=== PATIENT | female | born 1950 | race Caucasian/White ===

== ENCOUNTER 2018-04-22 05:20 | Emergency (ER) | payer OTHER ==
[2018-04-22 06:08] LABS: Absolute Lymphocytes (CBC) 2.5 K/uL (0.7-4.9); Absolute Monocytes 0.7 K/uL (0.1-1.3); Absolute Neutrophil 9.2 K/uL (1.8-8.0); Basophils % 0.3 % (0-1.3); Hematocrit 41.1 % (36.0-45.0); Lymphocytes % 19.9 % (15.3-44.8); MCH 23.3 pg (27.0-35.0); MCV 73.3 fL (80-100); MPV 9.1 fL (7.6-11.3); Monocytes % 5.8 % (3.3-12.3); RBC Red Blood Cell Count 5.61 M/uL (3.86-4.86)
[2018-04-22 06:23] LABS: Albumin 3.8 g/dL (3.4-5.0); Bilirubin Direct 0.1 mg/dL (0-0.2); Bilirubin Total 0.5 mg/dL (0.2-1.0); Potassium 3.1 mmol/L (3.5-5.1); Protein, Total 8.2 g/dL (6.4-8.2)
[2018-04-22] MEDS ORDERED: NA CHLORIDE 0.9% 250 ML ONE (06:41)
[2018-04-22] MEDS ORDERED: NA CHLORIDE 0.9% 1,000 ML ONE ×2 (06:41→06:49)
[2018-04-22] MEDS ORDERED: ONDANSETRON 4 MG/2 ML VIAL ONE ×2 (06:41→10:30)
[2018-04-22] MEDS ORDERED: PANTOPRAZOLE 40 MG INJ ONE (06:41)
[2018-04-22] MEDS ORDERED: PROMETHAZINE 25 MG/ML VIAL ONE (06:49)
[2018-04-22 07:37] LABS: Urine Blood 2+ (NEG); Urine Glucose TRACE (NEG); Urine Protein 2+ (NEG)
[2018-04-22 07:49] LABS: Urine Bacteria 20-50 /HPF (<20); Urine Culture Reflex Order REFLEXED; Urine RBC <5 /HPF (NONE SEEN)
--- NOTE | 2018-04-22 08:32 | EDPHYS ---
Physician Documentation [facility] Name: Denise Duong Age: 68 yrs Sex: Female : 1950 Arrival Date: 04/22/2018 Time: 05:21 Bed 7 Private MD: ED Physician Zacarias Luong HPI: 04/22 05:26 This 68 yrs old Female presents to ER via Unassigned with complaints of abd rn pain, vomiting. 05:26 The patient presents with abdominal pain that is diffuse. Onset: The symptoms/episode rn began/occurred today. The symptoms do not radiate. Associated signs and symptoms: Pertinent positives: nausea and vomiting, Pertinent negatives: fever, hematuria. The symptoms are described as achy, constant, crampy. Modifying factors: The symptoms are alleviated by nothing, the symptoms are aggravated by movement, touching the area. Severity of pain: At its worst the pain was moderate in the emergency department the pain is unchanged. The patient has experienced similar episodes in the past. The patient has not recently seen a physician. Sent for evaluation by correction after single episode of vomiting, possible "coffee grounds" per correction, patient reports abd pain, constant, and threw up one more time while with EMS. + hx of UGIB and bowel obstruction.. Historical: - Allergies: 05:48 Ampicillin; jd3 05:48 Keflex; jd3 - Home Meds: 05:48 magnesium oxide 400 mg Oral tab daily [Active]; simvastatin 10 mg Oral tab 1 tab jd3 nightly [Active]; Vitamin D3 1,000 unit Oral tab 2 tab daily [Active]; tramadol 50 mg Oral tab 1 tab every 6 hours [Active]; Miralax 17 gram Oral pwpk 1 packet twice a day [Active]; senna 8.6 mg Oral cap 2 caps twice a day [Active]; Seroquel 300 mg Oral tab 1 tab nightly [Active]; metoprolol tartrate 25 mg Oral tab 0.5 tab 2 times per day [Active]; calcium carbonate 500 mg calcium (1,250 mg) Oral tab twice a day [Active]; Cymbalta 60 mg Oral cpDR 1 cap once daily [Active]; Xanax 0.25 mg Oral tab 1 tab twice a day [Active]; gabapentin 300 mg Oral cap 1 cap 3 times per day [Active]; trazodone 100 mg Oral tab 1 tab nightly [Active]; Nexium 40 mg oral cpDR 1 cap once daily [Active]; Remeron 15 mg Oral tab 1 tab once daily [Active]; ferrous sulfate 325 mg (65 mg iron) Oral TbEC daily [Active]; acetaminophen 325 mg Oral tab 2 tabs every 6 hours [Active]; bisacodyl 10 mg Rectal supp as needed [Active]; ondansetron HCl 4 mg Oral tab 1 tabs as needed [Active]; - PMHx: 05:48 Anemia; Anxiety; Bipolar disorder; CVA; Cystitis; Dementia; Depression; GI Bleed; jd3 hemiparesis; Hypertension; Schizophrenia; UTI; - PSHx: 05:48 Cholecystectomy; abdominal sx; jd3 - Immunization history:: Adult Immunizations up to date. - Social history:: Smoking status: Patient uses tobacco products. - Family history:: not pertinent. - Ebola Screening: : Patient negative for fever greater than or equal to 101.5 degrees Fahrenheit, and additional compatible Ebola Virus Disease symptoms. - Hospitalizations: : No recent hospitalization is reported. ROS: 05:26 Constitutional: Negative for fever, chills, and weight loss, Eyes: Negative for injury, rn pain, redness, and discharge, Neck: Negative for injury, pain, and swelling, Cardiovascular: Negative for chest pain, palpitations, and edema, Respiratory: Negative for shortness of breath, cough, wheezing, and pleuritic chest pain, Abdomen/GI: + abd pain/nausea/vomiting MS/Extremity: Negative for injury and deformity, Skin: Negative for injury, rash, and discoloration, Neuro: Negative for headache, weakness, numbness, tingling, and seizure. Exam: 05:26 Constitutional: This is a well developed, well nourished patient who is awake, alert, rn holding emesis bag Head/Face: Normocephalic, atraumatic. Eyes: Pupils equal round and reactive to light, extra-ocular motions intact. Lids and lashes normal. Conjunctiva and sclera are non-icteric and not injected. Cornea within normal limits. Periorbital areas with no swelling, redness, or edema. ENT: Nares patent. No nasal discharge, no septal abnormalities noted. Oropharynx with no redness, swelling, or masses, exudates, or evidence of obstruction, uvula midline. Mucous membranes moist. Neck: Trachea midline, no thyromegaly or masses palpated, and no cervical lymphadenopathy. Supple, full range of motion without nuchal rigidity, or vertebral point tenderness. No Meningismus. Cardiovascular: tachycardic, regular, no murmur Respiratory: Lungs have equal breath sounds bilaterally, clear to auscultation and percussion. No rales, rhonchi or wheezes noted. No increased work of breathing, no retractions or nasal flaring. Abdomen/GI: soft, + tender in all 4 quadrants MS/ Extremity: Pulses equal, no cyanosis. Neurovascular intact. Full, normal range of motion. Equal circumference. Neuro: Awake and alert, GCS 15, oriented to person, place, and situation. Cranial nerves II-XII grossly intact. Motor strength 5/5 in all extremities. Sensory grossly intact. Vital Signs: 05:48 BP 153 / 77; Pulse 120; Resp 20 S; Pulse Ox 95% on R/A; Weight 45.81 kg (R); Height 5 jd3 ft. 2 in. (157.48 cm) (R); Pain 9/10; 06:54 BP 164 / 53; Pulse 117; Resp 18 S; Pulse Ox 97% on R/A; bb 08:07 BP 151 / 62; Pulse 102; Resp 18 S; Temp 99.2(O); Pulse Ox 98% on R/A; Pain 7/10; jl7 09:28 BP 154 / 68; Pulse 114; Resp 18; Pulse Ox 92% ; jl7 10:25 BP 170 / 78; Pulse 107; Resp 18 S; Pulse Ox 95% on R/A; jl7 05:48 Body Mass Index 18.47 (45.81 kg, 157.48 cm) jd3 MDM: 05:22 Patient medically screened. rn 08:33 Data reviewed: vital signs, nurses notes, EMS record, lab test result(s), EKG, tony radiologic studies, CT scan, plain films. 04/22 05:24 Order name: Basic Metabolic Panel; Complete Time: 06:26 rn 04/22 05:24 Order name: CBC with Diff; Complete Time: 06:26 rn 04/22 05:24 Order name: Hepatic Function; Complete Time: 06:26 rn 04/22 05:24 Order name: Lipase; Complete Time: 06:26 rn 04/22 05:24 Order name: Urine Microscopic Only; Complete Time: 08:21 rn 04/22 05:46 Order name: Type And Screen; Complete Time: 10:19 rn 04/22 06:54 Order name: Occult Blood--Ancillary 2 04/22 07:35 Order name: Urine Dipstick--Ancillary (enter results); Complete Time: 08:21 mb4 04/22 07:51 Order name: Urine Culture EDIA 04/22 08:33 Order name: Ckmb [facility] 04/22 08:33 Order name: CPK [facility] 04/22 08:33 Order name: Magnesium; Complete Time: 10:19 [facility] 04/22 08:33 Order name: NT PRO-BNP; Complete Time: 10:19 [facility] 04/22 08:33 Order name: PT-INR; Complete Time: 10:19 [facility] 04/22 05:24 Order name: CT Abd/Pelvis - W/Contrast; Complete Time: 10:19 rn 04/22 08:33 Order name: Ptt, Activated; Complete Time: 10:19 [facility] 04/22 08:33 Order name: Troponin (emerg Dept Use Only); Complete Time: 10:19 [facility] 04/22 08:33 Order name: XRAY Chest (1 view) [facility] 04/22 08:33 Order name: CKMB Creatine Kinase MB; Complete Time: 10:19 EDMS 04/22 08:33 Order name: Creatine Phosphokinase; Complete Time: 10:19 EDMS 04/22 05:24 Order name: IV Saline Lock; Complete Time: 07:00 rn 04/22 05:24 Order name: Labs collected and sent; Complete Time: 07:00 04/22 05:24 Order name: Urine Dipstick-Ancillary (obtain specimen); Complete Time: 08:00 rn 04/22 05:46 Order name: Hemacult; Complete Time: 05:46 [facility] 04/22 08:33 Order name: EKG; Complete Time: 08:33 [facility] 04/22 08:33 Order name: Cardiac monitoring; Complete Time: 09:27 [facility] 04/22 08:33 Order name: EKG - Nurse/Tech; Complete Time: 09:27 [facility] 04/22 08:33 Order name: O2 Per Protocol; Complete Time: 09:27 [facility] 04/22 08:33 Order name: O2 Sat Monitoring; Complete Time: 09:27 tony Administered Medications: 05:50 Drug: NS 0.9% 500 ml Route: IV; Rate: bolus; Site: right hand; bb 07:00 Follow up: IV Status: Completed infusion jl7 05:55 Drug: Zofran 4 mg Route: IVP; Site: right hand; bb 06:59 Follow up: Response: No adverse reaction bb 06:00 Drug: ProTONIX 40 mg Route: IVP; Site: right hand; bb 07:00 Follow up: Response: No adverse reaction jl7 06:03 Drug: ProTONIX 8 mg/hr Route: IV; Rate: 25 ml/hr; Site: right hand; bb 08:20 Follow up: IV Pause: 04/22/2018 08:20; IV Pause Reason: Patient to CT [facility] 09:15 Follow up: IV Resume: 04/22/2018 09:15; IV Resume Reason: Patient returned from CT jl7 11:43 Follow up: Response: No adverse reaction; IV Status: Infusion continued upon transfer [facility] 06:49 Drug: Phenergan 12.5 mg Route: IVP; Site: right hand; bb 07:00 Follow up: Response: No adverse reaction; Nausea is decreased 7 07:15 Drug: NS 0.9% 500 ml Route: IV; Rate: bolus; Site: left jugular; jl7 08:23 Follow up: Response: No adverse reaction; IV Status: Completed infusion 7 08:23 Not Given (Duplicate Order): NS 0.9% 1000 ml IV at 125 ml/hr continuous [facility] 09:15 Drug: NS 0.9% with KCl 20 mEq/L 1000 ml Route: IV; Rate: 125 ml/hr; Site: left jugular; jl7 11:43 Follow up: Response: No adverse reaction; IV Status: Infusion continued upon transfer jl7 09:25 Drug: levofloxacin 500 mg Volume: 100 ml; Route: IVPB; Infused Over: 60 mins; Site: [facility] right hand; 10:25 Follow up: Response: No adverse reaction; IV Status: Completed infusion 7 10:30 Drug: Zofran 4 mg Route: IVP; Site: left jugular; jl7 11:00 Follow up: Response: No adverse reaction; Nausea is decreased 7 11:00 Drug: Flagyl 500 mg Volume: 100 ml; Route: IVPB; Rate: 200 ml/hr; Infused Over: 30 jl7 mins; Site: right hand; 11:30 Follow up: Response: No adverse reaction; IV Status: Completed infusion jl7 Point of Care Testing: Guaiac: 05:46 Emesis Guaiac: Positive; Emesis Hemoccult Control: Pass rn Disposition: 04/22/18 08:31 Transfer ordered to [facility]. Diagnosis are Vomiting, Gastrointestinal hemorrhage, unspecified, Hypokalemia, Cystitis, Left sided colitis - proctitis. - Reason for transfer: Higher level of care. - Accepting physician is to [facility]. - Condition is Fair. - Problem is new. - Symptoms have improved. Signatures: Dispatcher [employer] EDMS Zacarias Luong MD MD cha Ballard, Brenda RN RN Maximilian Avitia MD MD rn Leal, Jahala, RN RN jl7 Ivan Gaffney RN RN Alexis Zambrano mw2 Corrections: (The following items were deleted from the chart) 08:32 08:31 04/22/2018 08:31 Transfer ordered to [facility]. Diagnosis is tony Vomiting; Gastrointestinal hemorrhage, unspecified. Reason for transfer: Higher level of care. Accepting physician is to [facility]. Condition is Fair. Problem is new. Symptoms have improved. tony 10:20 08:32 04/22/2018 08:31 Transfer ordered to [facility]. Diagnosis is tony Vomiting; Gastrointestinal hemorrhage, unspecified; Hypokalemia; Cystitis. Reason for transfer: Higher level of care. Accepting physician is to [facility]. Condition is Fair. Problem is new. Symptoms have improved. tony 11:43 10:20 04/22/2018 08:31 Transfer ordered to [facility]. Diagnosis is jl7 Vomiting; Gastrointestinal hemorrhage, unspecified; Hypokalemia; Cystitis; Left sided colitis - proctitis. Reason for transfer: Higher level of care. Accepting physician is to [facility]. Condition is Fair. Problem is new. Symptoms have improved. tony
--- NOTE | 2018-04-22 08:32 | ER ---
Nurse's Notes [facility] Name: Denise Duong Age: 68 yrs Sex: Female : 1950 Arrival Date: 04/22/2018 Time: 05:21 Bed 7 Private MD: Diagnosis: Vomiting;Gastrointestinal hemorrhage, unspecified;Hypokalemia;Cystitis;Left sided colitis-proctitis Presentation: 04/22 05:32 Presenting complaint: EMS states: "pt has been vomiting blood with nausea and diarrhea jd3 as well.". Transition of care: patient was received from another setting of care ([facility]), [facility]. Onset of symptoms was April 22, 2018. Risk Assessment: Do you want to hurt yourself or someone else? Patient reports no desire to harm self or others. Initial Sepsis Screen: Does the patient meet any 2 criteria? HR > 90 bpm. Yes Does the patient have a suspected source of infection? No. Patient's initial sepsis screen is negative. Care prior to arrival: IV initiated. 22 GA, in the right wrist. 05:32 Method Of Arrival: EMS: [facility] jd3 05:32 Acuity: NUBIA 3 jd3 Historical: - Allergies: 05:48 Ampicillin; jd3 05:48 Keflex; jd3 - Home Meds: 05:48 magnesium oxide 400 mg Oral tab daily [Active]; simvastatin 10 mg Oral tab 1 tab jd3 nightly [Active]; Vitamin D3 1,000 unit Oral tab 2 tab daily [Active]; tramadol 50 mg Oral tab 1 tab every 6 hours [Active]; Miralax 17 gram Oral pwpk 1 packet twice a day [Active]; senna 8.6 mg Oral cap 2 caps twice a day [Active]; Seroquel 300 mg Oral tab 1 tab nightly [Active]; metoprolol tartrate 25 mg Oral tab 0.5 tab 2 times per day [Active]; calcium carbonate 500 mg calcium (1,250 mg) Oral tab twice a day [Active]; Cymbalta 60 mg Oral cpDR 1 cap once daily [Active]; Xanax 0.25 mg Oral tab 1 tab twice a day [Active]; gabapentin 300 mg Oral cap 1 cap 3 times per day [Active]; trazodone 100 mg Oral tab 1 tab nightly [Active]; Nexium 40 mg oral cpDR 1 cap once daily [Active]; Remeron 15 mg Oral tab 1 tab once daily [Active]; ferrous sulfate 325 mg (65 mg iron) Oral TbEC daily [Active]; acetaminophen 325 mg Oral tab 2 tabs every 6 hours [Active]; bisacodyl 10 mg Rectal supp as needed [Active]; ondansetron HCl 4 mg Oral tab 1 tabs as needed [Active]; - PMHx: 05:48 Anemia; Anxiety; Bipolar disorder; CVA; Cystitis; Dementia; Depression; GI Bleed; jd3 hemiparesis; Hypertension; Schizophrenia; UTI; - PSHx: 05:48 Cholecystectomy; abdominal sx; jd3 - Immunization history:: Adult Immunizations up to date. - Social history:: Smoking status: Patient uses tobacco products. - Family history:: not pertinent. - Ebola Screening: : Patient negative for fever greater than or equal to 101.5 degrees Fahrenheit, and additional compatible Ebola Virus Disease symptoms. - Hospitalizations: : No recent hospitalization is reported. Screenin:52 Abuse screen: Denies threats or abuse. Nutritional screening: No deficits noted. jd3 Tuberculosis screening: No symptoms or risk factors identified. Fall Risk IV access (20 points). Ambulatory Aid- Crutches/Cane/Walker (15 pts). Gait- Impaired (20 pts.). Mental Status- Oriented to own ability (0 pts). Total Shaikh Fall Scale indicates Low Risk Score (25-44 pts). Fall prevention measures have been instituted. Side Rails Up X 2 Placed close to Nursing Station Frequent Obs/Assesments occuring. Assessment: 05:50 General: Appears uncomfortable, Behavior is cooperative, appropriate for age. Pain: jd3 Complains of pain in abdomen Quality of pain is described as aching, tender, Also complains of nausea. Neuro: Level of Consciousness is awake, alert, obeys commands, Oriented to person, place, time, situation. Cardiovascular: Capillary refill < 3 seconds Patient's skin is warm and dry. Respiratory: Airway is patent Respiratory effort is even, unlabored, Respiratory pattern is regular, symmetrical. GI: Abdomen is round Bowel sounds present X 4 quads. Abd is soft Abdomen is tender to palpation X 4 quads. Reports diarrhea, nausea, vomiting, vomiting blood. : No signs and/or symptoms were reported regarding the genitourinary system. EENT: No signs and/or symptoms were reported regarding the EENT system. Derm: Skin is intact, Skin is dry, Skin is normal, Skin temperature is warm. 06:55 Reassessment: No changes from previously documented assessment. pt awaiting CT scan IV bb site intact, patent with fluids infusing. 07:00 Reassessment: Patient appears in no apparent distress at this time. Neuro: Level of jl7 Consciousness is awake, alert, obeys commands, Oriented to person, place, time, situation. Cardiovascular: Patient's skin is warm and dry. Respiratory: Airway is patent Respiratory effort is even, unlabored, Respiratory pattern is regular, symmetrical. GI: Abdomen is round Bowel sounds present X 4 quads. Abd is soft Abdomen is tender to palpation X 4 quads. Reports diarrhea, Patient currently denies vomiting. : No signs and/or symptoms were reported regarding the genitourinary system. Derm: Skin is intact, Skin is Skin is pink, warm \\T\\ dry. Skin temperature is. 07:10 Reassessment: Pt finished oral contrast, CT notified. jl7 08:00 Reassessment: Patient and/or family updated on plan of care and expected duration. Pain jl7 level reassessed. Patient is alert, oriented x 3, equal unlabored respirations, skin warm/dry/pink. 09:57 Reassessment: Report given to KRYSTLE Harrington for transfer. jl7 10:25 Reassessment: pt actively vomiting, provider notified see [facility] for orders. jl7 Vital Signs: 05:48 BP 153 / 77; Pulse 120; Resp 20 S; Pulse Ox 95% on R/A; Weight 45.81 kg (R); Height 5 jd3 ft. 2 in. (157.48 cm) (R); Pain 9/10; 06:54 BP 164 / 53; Pulse 117; Resp 18 S; Pulse Ox 97% on R/A; bb 08:07 BP 151 / 62; Pulse 102; Resp 18 S; Temp 99.2(O); Pulse Ox 98% on R/A; Pain 7/10; jl7 09:28 BP 154 / 68; Pulse 114; Resp 18; Pulse Ox 92% ; jl7 10:25 BP 170 / 78; Pulse 107; Resp 18 S; Pulse Ox 95% on R/A; jl7 05:48 Body Mass Index 18.47 (45.81 kg, 157.48 cm) jd3 ED Course: 05:21 Patient arrived in ED. ds1 05:22 Maximilian Scruggs MD is Attending Physician. rn 05:32 Ivan Gaffney RN is Primary Nurse. jd3 05:34 Triage completed. jd3 05:34 Maintain EMS IV. Dressing intact. Site clean \\T\\ dry. Gauge \\T\\ site: 22 G to right wrist.. buster 3 05:49 Arm band placed on. jd3 05:51 hemacult tested positive per Dr. Scruggs. mw2 05:52 Radiology exam delayed due to Not able to drink oral contrast at this time. ER staff kw1 will notify CT when patient is able. 05:53 Patient has correct armband on for positive identification. Placed in gown. Bed in low jd3 position. Call light in reach. Side rails up X2. 06:35 Missed attempt(s): 24 gauge in left forearm. Bleeding controlled, band aid applied, ea catheter tip intact. 06:40 Missed attempt(s): 22 gauge in left forearm. Bleeding controlled, band aid applied, ea catheter tip intact. 06:54 Missed attempt(s): 22 gauge in right antecubital area. Bleeding controlled, band aid bb applied, catheter tip intact. 07:15 Inserted saline lock: 20 gauge in left EJ, using aseptic technique. ,using aseptic jl7 technique. inserted by CLARA Mead. 07:16 Radiology exam delayed due to IV insertion attempt and/or patient not having vm2 appropriate IV at this time. Jason will call when pt has another line. 07:27 Attending Physician role handed off by Maximilian Scruggs MD tony 07:27 Zacarias Luong MD is Attending Physician. tony 07:30 Cleaned of incontinence. jl7 07:30 Warm blanket given. jl7 07:35 Straight cath inserted, using sterile technique, 16 Fr. Specimen obtained. Returned jl7 cloudy urine. Patient tolerated well. 08:00 No provider procedures requiring assistance completed. Patient transferred, IV remains jl7 in place. 08:08 Oral care given. jl7 08:[address] via stretcher. vm2 08:28 CT completed. Note: . Patient moved back from CT. cw1 08:28 CT Abd/Pelvis - W/Contrast In Process Unspecified. EDMS 09:01 X-ray completed. Portable x-ray completed in exam room. Patient tolerated procedure ag1 well. 09:12 XRAY Chest (1 view) In Process Unspecified. EDMS 09:25 Inserted saline lock: 24 gauge in right hand, using aseptic technique. jl7 Administered Medications: 05:50 Drug: NS 0.9% 500 ml Route: IV; Rate: bolus; Site: right hand; bb 07:00 Follow up: IV Status: Completed infusion jl7 05:55 Drug: Zofran 4 mg Route: IVP; Site: right hand; bb 06:59 Follow up: Response: No adverse reaction bb 06:00 Drug: ProTONIX 40 mg Route: IVP; Site: right hand; bb 07:00 Follow up: Response: No adverse reaction jl7 06:03 Drug: ProTONIX 8 mg/hr Route: IV; Rate: 25 ml/hr; Site: right hand; bb 08:20 Follow up: IV Pause: 04/22/2018 08:20; IV Pause Reason: Patient to CT jl7 09:15 Follow up: IV Resume: 04/22/2018 09:15; IV Resume Reason: Patient returned from CT jl7 11:43 Follow up: Response: No adverse reaction; IV Status: Infusion continued upon transfer jl7 06:49 Drug: Phenergan 12.5 mg Route: IVP; Site: right hand; bb 07:00 Follow up: Response: No adverse reaction; Nausea is decreased jl7 07:15 Drug: NS 0.9% 500 ml Route: IV; Rate: bolus; Site: left jugular; jl7 08:23 Follow up: Response: No adverse reaction; IV Status: Completed infusion jl7 08:23 Not Given (Duplicate Order): NS 0.9% 1000 ml IV at 125 ml/hr continuous tony 09:15 Drug: NS 0.9% with KCl 20 mEq/L 1000 ml Route: IV; Rate: 125 ml/hr; Site: left jugular; jl7 11:43 Follow up: Response: No adverse reaction; IV Status: Infusion continued upon transfer jl7 09:25 Drug: levofloxacin 500 mg Volume: 100 ml; Route: IVPB; Infused Over: 60 mins; Site: [facility] right hand; 10:25 Follow up: Response: No adverse reaction; IV Status: Completed infusion jl7 10:30 Drug: Zofran 4 mg Route: IVP; Site: left jugular; jl7 11:00 Follow up: Response: No adverse reaction; Nausea is decreased jl7 11:00 Drug: Flagyl 500 mg Volume: 100 ml; Route: IVPB; Rate: 200 ml/hr; Infused Over: 30 jl7 mins; Site: right hand; 11:30 Follow up: Response: No adverse reaction; IV Status: Completed infusion jl7 Point of Care Testing: Guaiac: 05:46 Emesis Guaiac: Positive; Emesis Hemoccult Control: Pass rn Outcome: 08:31 ER care complete, transfer ordered by . [facility] 11:39 Transferred by ground EMS to [facility], Transfer form completed. jl7 X-rays sent w/ patient. 11:39 Condition: stable 11:39 Discharge instructions given to patient, Instructed on the need for transfer, Demonstrated understanding of instructions. 11:43 Patient left the ED. jl7 Addendum: 04/25/2018 09:07 Addendum: Culture Results: Positive urine culture. Faxed culture report to [facility] ATTSilvestre MORA. Signatures: Dispatcher [employer] EDMS Zacarias Luong MD MD cha Sanford, Demi ds1 Lyudmila Valero RN RN bb Nieto, Roman, MD MD rn Smirch, Shelby, RN RN ss Woodley, Crystal cw1 Linh Vogel ag1 Emily Gonzáles RN RN jl7 McGuire, Victoria 2 Anyi Shaver RN RN ea Davies, Jonathon, RN RN jd3 Wilhelm, Kimberly [address]Alex[address] wells 2
[2018-04-22] MEDS ORDERED: NS KCL 20MEQ 1,000 ML IV ONE (08:44)
[2018-04-22] MEDS ORDERED: Levofloxacin500mg IV 500 MG/100 ML BAG IV ONE (08:44)
--- NOTE | 2018-04-22 08:51 | RAD REPORT ---
EXAM DESCRIPTION: CTAbdomen Pelvis W Contrast - 04/22/2018 8:28 am CLINICAL HISTORY: Abdominal pain. Abd pain;Nausea / vomiting COMPARISON: Abdomen Pelvis W Contrast dated 10/16/2016; Abdomen Pelvis W Contrast dated 6; Abdomen Pelvis W Contrast dated 05/31/2016; Abdomen Pelvis W Contrast dated 05/23/2016; Chest Sin gle View dated 11/07/2017 TECHNIQUE: Biphasic CT imaging of the abdomen and pelvis was performed with 100 ml non-ionic IV cont rast. All CT scans are performed using dose optimization technique as appropriate and may include automated exposure control or mA/KV adjustment according to patient size. FINDINGS: The lower lung jordan are emphysematous.Mild dilatation of the esophagus is seen with with oral contrast most compatible with gastroesophageal reflux. A rounded metallic structure is present in the fundus posteriorly of the stomach which could be an ingested coin. Postsurgical clips are pres ent about the stomach. The liver, spleen, pancreas, adrenal glands and kidneys are within normal limits. Cholecystectomy cli ps. No bowel obstruction, free air, free fluid or abscess. Mild thickening mucosal enhancement of the rec tosigmoid colon is seen. The appendix is not identified as a discrete structure, however, no secondar y findings of appendicitis are identified. No evidence of significant lymphadenopathy. No acute fractures seen. Lumbar degenerative changes are present. Hardware is present in the proximal left femur. Mild thickening of the anterior aspect of the urinary bladder. IMPRESSION: Rounded metallic structure is seen in the fundus of the stomach which is the appearance of a coin. Correlation with clinical history of possible ingested foreign body is recommended. No bow el obstruction is seen. Mild thickening of the rectosigmoid mucosa with subtle enhancement could indicate proctitis. Urinary bladder thickening anteriorly is present, possibly related to cystitis.
[2018-04-22 09:20] LABS: Protime INR 1.03
[2018-04-22 09:50] LABS: CKMB Creatine Kinase MB < 1.0 ng/mL (0.3-3.6); Creatine Phosphokinase 38 U/L (26-192); Magnesium 1.8 mg/dL (1.8-2.4); NT PRO-BNP 4231 pg/mL (<125)
[2018-04-22] MEDS ORDERED: METRONIDAZOLE 500mg IVPB 500 MG/100 ML BAG IV ONE (10:36)
--- NOTE | 2018-04-22 11:09 | RAD REPORT ---
EXAM DESCRIPTION: RAD - Chest Single View - 04/22/2018 9:12 am CLINICAL HISTORY: ABDOMINAL DISTENTION Chest pain. COMPARISON: Chest Single View dated 11/07/2017; Chest Single View dated 12/12/2016; Abdomen Acute Seri es dated 11/06/2016; Chest Single View dated 11/05/2016 FINDINGS: Portable technique limits examination quality. The lungs are mildly emphysematous but clear. The heart is normal in size. No displaced fractures.Cer vical spine wiring noted. IMPRESSION: Prominent COPD.
[2018-04-22 11:53] VITALS: TEMP 99.2
[2018-04-22 11:55] VITALS: BP 170/78; O2SAT 95
--- NOTE | 2018-04-23 10:43 | EKG ---
Test Date: 2018-04-22 Test Time: 08:51:22 Director Of Resource Development: ANISH MEASUREMENT RESULTS: Intervals: Rate: 110 OR: 150 QRSD: 64 QT: 364 QTc: 492 [place]: P: 65 OR: 150 QRS: 0 T: 34 INTERPRETIVE STATEMENTS: Sinus tachycardia Low voltage QRS Cannot rule out Inferior infarct, age undetermined Abnormal ECG Compared to ECG 11/07/2017 14:40:40 Myocardial infarct finding now present Sinus rhythm no longer present Electronically Signed On 04-23-18 10:43:25 CDT by Lance Duke
== END 2018-04-22 11:43 | disposition short-term general hospital (02) ==
LOC: ER 05:20
DX: K92.2 Gastrointestinal hemorrhage, unspecified (principal); N30.90 Cystitis, unspecified without hematuria; K51.50 Left sided colitis without complications; E87.6 Hypokalemia; K62.89 Other specified diseases of anus and rectum; I10 Essential (primary) hypertension; F20.9 Schizophrenia, unspecified; F03.90 Unspecified dementia, unspecified severity, without behavioral disturbance, psychotic disturbance, mood disturbance, and anxiety; Z86.73 Personal history of transient ischemic attack (TIA), and cerebral infarction without residual deficits; Z72.0 Tobacco use; Z88.1 Allergy status to other antibiotic agents
CPT/HCPCS: 36415; 51702; 71045; 74177; 80048; 80076; 82550; 82553; 83690; 83735; 83880; 84484; 85025; 85610; 85730; 86850; 86900; 86901; 87077; 87086; 87088; 87186; 93005; 99285; C9113; J2405 ×2; J2550; J7030 ×2; Q9967; 81003; 81015; 82272